=== PATIENT | female | born 1955 | race Caucasian/White ===

== ENCOUNTER 2017-03-05 21:22 | Inpatient (IN) ==
[2017-03-05 22:16] LABS: Basophils % 0.3 %; Eosinophils # 0.1 K/mcL (0.0-0.6); Eosinophils % 0.8 %; Hematocrit 41.8 % (35.3-44.9); Hemoglobin 13.5 g/dL (11.5-15.4); Immature Granulocytes % 0.2 % (0-4); Lymphocytes # 0.9 K/mcL (0.6-4.6); Lymphocytes % 15.3 %; Mean Corpuscular HGB Conc 32.3 g/dL (31.6-35.5); Mean Corpuscular Hemoglobin 30.4 pg (28.0-33.3); Mean Corpuscular Volume 94.1 fL (83.0-100.0); Mean Platelet Volume 9.3 fL (9.4-12.4); Monocytes # 0.6 K/mcL (0.0-1.3); Monocytes % 9.7 %; Neutrophils # 4.5 K/mcL (1.6-8.9); Platelet Count 152 K/mcL (140-400); Red Blood Count 4.44 M/mcL (3.82-4.97); Red Cell Distribution Width 13.8 % (11.5-14.5); Segmented Neutrophils % 73.7 %
[2017-03-05 22:29] LABS: BUN/Creatinine Ratio 18 (6-26); Blood Urea Nitrogen 15 mg/dL (7-20); Calcium 8.9 mg/dL (8.6-10.8); Carbon Dioxide 26 mEq/L (19-29); Chloride 106 mEq/L (98-109); Glucose 108 mg/dL (70-99); Osmolality,Calculated 293 (280-300); Potassium 4.2 mEq/L (3.5-4.5); Sodium 141 mEq/L (136-145); eGFR For African Americans > 60 (> 60); eGFR For Non-African Americans > 60 (> 60)
[2017-03-05] MEDS ORDERED: Furosemide 40 MG/4 ML VIAL IVP ONE (22:40)
--- NOTE | 2017-03-05 22:57 | Emergency Department Note ---
Disposition Clinical Impression: Congestive heart failure (CHF) Qualifiers: Congestive heart failure type: unspecified congestive heart failure type Congestive heart failure chronicity: acute Qualified Code(s): I50.9 - Heart failure, unspecified Disposition: Admitted As Inpatient Condition: Fair Time of Disposition: 23:22 SOB HPI - General Chief Complaint: ED Shortness of Breath/Dyspnea Stated Complaint: SOB Time Seen by Provider: 03/05/17 21:37 Source: patient, EMS Limitations: no limitations Nursing Notes Reviewed: Yes Vital Signs Reviewed: Yes - History of Present Illness Patient is a 61-year-old female who presents to [facility] ED with a chief complaint of difficulty breathing. States her symptoms worsened over the last several days. States she feels it in the substernal and epigastric region. States she has also had worsening lower extremity swelling as well as exertional dyspnea especially going up the stairs. Denies any prior history of heart problems. States at one point back in 2011, her primary care physician had referred her to a data processing systems project planner but then nothing really came out of it. Denies any nausea, vomiting, fever or chills. No recent cough or chest pain. No abdominal pain, no problems with urination or bowel movements. Pt Subjective Complaint: shortness of breath Onset (ago): day(s) Context: occurred during exertion Severity: moderate Consistency/Duration: gradually worsening Improves with: nothing Worsens with: exertion Associated symptoms: Denies: chest pain, fever, cough Treatment prior to arrival: none Cough present: No - Related Data Home oxygen amount: none Home Medications Medication Instructions Recorded Confirmed Preservision Areds 2 Softgel 03/05/17 Vitamin D3 03/05/17 03/05/17 Allergies Allergy/AdvReac Type Severity Reaction Status Date / Time No Known Allergies Allergy Verified 03/05/17 19:42 All systems ED: reviewed and negative except as stated. Past Medical History - Past Medical History Attestation: Yes The following information was validated with the patient. Source: patient Medical history: Reports: non-contributory Surgical history: Reports: non-contributory Psychiatric history: Reports: no psych history - Social History Smoking Status: Never smoker Smokeless Tobacco Status: No Alcohol use: Reports: none Drug use: Reports: none Physical Exam CONSTITUTIONAL: Well-appearing; well-nourished; A&O X 3, in no apparent distress HEAD: Normocephalic; atraumatic EYES: PERRL, no scleral icterus NOSE: The nose is normal in appearance without rhinorrhea NECK: No JVD or distended neck veins RESP: Normal chest excursion with respiration; breath sounds with crackles at the bases bilaterally; no wheezes, rhonchi, or rales CARD: Regular rhythm, without murmurs, rub or gallop ABD: Non-distended; non-tender, soft, without rigidity, rebound or guarding,no pulsatile mass CHEST: No pain with palpation SKIN: Normal for age and race; warm and dry without diaphoresis ; no apparent lesions EXTREMITIES: Pulses are 2 plus and equal times 4 extremities, 1+ peripheral edema, no calf muscle pain - General Limitations: no limitations General appearance: alert Course Course Narrative: Patient seen and examined. Worsening lower extremity swelling as well as exertional dyspnea. No prior history of congestive heart failure. Cardiopulmonary workup initiated. - Reevaluation(s) Reevaluation #1: Lab work shows elevated BNP in the 3000s. New-onset congestive heart failure. 40 mg IV Lasix ordered. Lab work otherwise unremarkable. I discussed with hospitalist Dr. Saunders who has accepted patient for admission. Time: 23:22 Vital Signs Temperature 97.4 F L 03/05/17 21:29 Pulse Rate 87 03/05/17 21:29 Respiratory Rate 20 03/05/17 21:29 Blood Pressure 94/65 03/05/17 21:29 O2 Sat by Pulse Oximetry 97 03/05/17 21:29 Temperature 97.4 F L 03/05/17 21:29 Pulse Rate 79 03/05/17 22:56 Respiratory Rate 18 03/05/17 23:41 Blood Pressure 119/71 03/05/17 23:41 O2 Sat by Pulse Oximetry 91 03/05/17 22:56 Oxygen Delivery Oxygen Delivery Nasal Cannula Shortness of Breath/Dyspnea - Medical Records Medical records reviewed: Yes I reviewed the patient's medical records. - Lab Data Lab results reviewed: Yes I reviewed the patient's lab results. Result diagrams: 03/05/17 22:07 03/05/17 22:07 Lab Results 03/05/17 03/05/17 03/05/17 Range/Units 22:07 22:07 22:07 WBC 6.1 (4.3-11.1) K/mcL RBC 4.44 (3.82-4.97) M/mcL Hgb 13.5 (11.5-15.4) g/dL Hct 41.8 (35.3-44.9) % MCV 94.1 (83.0-100.0) fL MCH 30.4 (28.0-33.3) pg MCHC 32.3 (31.6-35.5) g/dL RDW 13.8 (11.5-14.5) % Plt Count 152 (140-400) K/mcL MPV 9.3 L (9.4-12.4) fL Immature Gran % 0.2 (0-4) % Seg Neutrophils % 73.7 % Lymphocytes % 15.3 % Monocytes % 9.7 % Eosinophils % 0.8 % Basophils % 0.3 % Neutrophils # 4.5 (1.6-8.9) K/mcL Lymphocytes # 0.9 (0.6-4.6) K/mcL Monocytes # 0.6 (0.0-1.3) K/mcL Eosinophils # 0.1 (0.0-0.6) K/mcL Basophils # 0.0 (0.0-0.2) K/mcL Sodium 141 (136-145) mEq/L Potassium 4.2 (3.5-4.5) mEq/L Chloride 106 (98-109) mEq/L Carbon Dioxide 26 (19-29) mEq/L BUN 15 (7-20) mg/dL Creatinine 0.83 (0.57-1.11) mg/dL Est GFR ( Amer) > 60 (> 60) Est GFR (Non-Af Amer) > 60 (> 60) BUN/Creatinine Ratio 18 (6-26) Glucose 108 H (70-99) mg/dL Calculated Osmolality 293 (280-300) Calcium 8.9 (8.6-10.8) mg/dL Troponin I 0.02 (0-0.03) ng/mL B-Natriuretic Peptide (0-100) pg/mL 03/05/17 Range/Units 22:07 WBC (4.3-11.1) K/mcL RBC (3.82-4.97) M/mcL Hgb (11.5-15.4) g/dL Hct (35.3-44.9) % MCV (83.0-100.0) fL MCH (28.0-33.3) pg MCHC (31.6-35.5) g/dL RDW (11.5-14.5) % Plt Count (140-400) K/mcL MPV (9.4-12.4) fL Immature Gran % (0-4) % Seg Neutrophils % % Lymphocytes % % Monocytes % % Eosinophils % % Basophils % % Neutrophils # (1.6-8.9) K/mcL Lymphocytes # (0.6-4.6) K/mcL Monocytes # (0.0-1.3) K/mcL Eosinophils # (0.0-0.6) K/mcL Basophils # (0.0-0.2) K/mcL Sodium (136-145) mEq/L Potassium (3.5-4.5) mEq/L Chloride (98-109) mEq/L Carbon Dioxide (19-29) mEq/L BUN (7-20) mg/dL Creatinine (0.57-1.11) mg/dL Est GFR ( Amer) (> 60) Est GFR (Non-Af Amer) (> 60) BUN/Creatinine Ratio (6-26) Glucose (70-99) mg/dL Calculated Osmolality (280-300) Calcium (8.6-10.8) mg/dL Troponin I (0-0.03) ng/mL B-Natriuretic Peptide 3194 H (0-100) pg/mL - Radiology Data Radiology results reviewed: Yes I reviewed the patient's radiology results. Chest X-Ray 03/05/17 21:37 IMPRESSION: 1. Cardiomegaly with pulmonary edema. D/ / Kashmir Connelly MD / Kashmir Connelly MD Interpreting Provider: Kashmir Connelly MD - EKG Data EKG attestation: Yes I reviewed and interpreted this EKG. EKG results narrative: EKG done at 2212 shows sinus rhythm with a rate of [address] elevation. Mild depression noted in leads V4 and V5. Normal axis. Moderate intraventricular conduction delay. Occasional PVCs. EKG appears unchanged from prior one done 03/05/2017 at the urgent care. Critical Care Time Critical Care Time: Yes Total Critical Care Time: 40 Attestation: Critical care performed: Time is exclusive of separately billable procedures. Time includes: direct patient care, patient reassessment, coordination of patient care, interpretation of data (laboratory data, radiology data, and respiratory data), review of patient's medical records, medical consultation and documentation of patient care. Procedures included in critical care time: Procedures excluded from critical care time: Attestation Statement - Attestation Attestation: I, Bernabe Camargo MD, personally evaluated this patient and discussed their management with the resident physician. I reviewed the resident's note and agree with the documented findings, medical decision making, and plan of care. 61-year-old female presents to the emergency department with a complaint of increasing shortness of breath over the past week, worse today. She denies any orthopnea. No fever. There has been some cough with just occasiona clear white sputum. No chest pain. No palpitations. No dizziness or syncope. She also has noticed mild swelling of her feet and ankles. She denies any prior history of any heart disease or CHF. She does have a heart murmur which she has had since childhood. 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 Alert and oriented 3. There is no cyanosis or diaphoresis. Breath sounds are equal bilaterally with a few bibasilar rales. Heart regular rate and rhythm with frequent ectopy. There is a grade 3/6 systolic murmur. Abdomen is soft and nontender with normal bowel sounds. There is 1+ pitting edema of the lower extremities bilaterally. Labs reviewed. BNP 3194. Chest x-ray shows cardiomegaly with pulmonary edema. EKG shows sinus rhythm with PVCs, no acute ischemic changes. Patient received Lasix IV and was placed on a nitroglycerin drip. The hospitalist, Dr. Saunders, was consulted and accepted admission of the patient.
[2017-03-05] MEDS ORDERED: Nitroglycerin 25 MG/250 ML INFUS..BTL IVC SCH (23:00)
--- NOTE | 2017-03-06 02:13 | Internal Med History&Physical ---
Date of Encounter: 03/06/17 Time of Encounter: 02:09 Assessment and Plan (1) Congestive heart failure (CHF) Current visit: Yes Status: Acute Patient has congestive heart failure. She has a systolic murmur likely mitral regurgitation. Will check echocardiogram to assess its severity and check LV function. She denies any chest pain. Will check serial troponin. Will start the patient on IV Lasix aspirin and low dose jaime inhibitor. will hold off beta blockers for now. Follow intake and output. Cardiology consultation. Telemetry monitoring. Qualifiers: Congestive heart failure type: unspecified congestive heart failure type Congestive heart failure chronicity: acute Qualified Code(s): I50.9 - Heart failure, unspecified Internal Medicine - H&P: HPI Chief complaint: sob History of present illness: Ms. Lopez is a 61 year old female with congenital anomalies of the upper extremities but no otherwise significant past medical history presents to the emergency room today with the main component of shortness of breath. For the past week patient has been having progressive shortness of breath to the point where she short of breath with minimal exertion she has noticed bilateral lower extremity swelling and weight gain. She has been having nonproductive cough no fever and chills. She denies any chest pain. She denies any prior similar problems. She mentioned that she was told since she was young that she has a cardiac murmur but never forgot one. She denies any otherwise medical problems. Past Med Surg Social Fam HX - Past Medical History Medical history: non-contributory Psychiatric history: no psych history - Past Surgical History Surgical History: non-contributory - Social History Smoking Status: Never smoker Smokeless Tobacco Status: No Alcohol use: none Drug use: none - Family History Father Hx Family Cardiac Disorders: Yes Hx Family Cancer: Yes Internal Medicine - H&P: Meds Preservision Areds 2 Softgel 03/05/17 [History] Vitamin D3 03/05/17 [History] 3 Allergy/AdvReac Type Severity Reaction Status Date / Time No Known Allergies Allergy Verified 03/05/17 19:42 All Systems PM: A 10-system review of systems was performed and is negative for pertinent findings except as documented above in the HPI. Review of systems: 10 point review of systems is negative except for HPI - Constitutional Vitals: Temp Pulse Resp BP Pulse Ox 97.9 F 65 16 119/71 94 03/06/17 00:41 11/11/17 00:41 03/06/17 00:41 03/06/17 00:41 03/06/17 00:41 Exam: General: Patient is A&O X3 Cardiac: pansystolic murmur over precordium, maximal intensity over apex Chest: Clear to auscultation bilaterally Abdomen: soft, nontender, non distended, normal BS. Neuro: No focal deficits LE" 1+ swelling Internal Med - H&P Results - Labs CBC & Chem 7: 03/05/17 22:07 03/05/17 22:07
[2017-03-06 04:34] LABS: BUN/Creatinine Ratio 19 (6-26); Blood Urea Nitrogen 15 mg/dL (7-20); Calcium 9.1 mg/dL (8.6-10.8); Carbon Dioxide 28 mEq/L (19-29); Chloride 102 mEq/L (98-109); Creatine Kinase 78 Units/L (29-168); Glucose 89 mg/dL (70-99); Magnesium 1.7 mg/dL (1.6-2.6); Osmolality,Calculated 298 (280-300); Sodium 144 mEq/L (136-145); eGFR For African Americans > 60 (> 60); eGFR For Non-African Americans > 60 (> 60)
[2017-03-06 04:49] LABS: Thyroid Stimulating Hormone 1.366 mcIU/mL (0.350-4.840)
[2017-03-06] MEDS: *HR* Heparin 5,000 UNIT/ML VIAL SQ SCH ×2 (05:05→17:01)
[2017-03-06] MEDS: Famotidine 20 MG TABLET PO SCH (09:49)
[2017-03-06] MEDS: Aspirin 81 MG TAB.CHEW PO SCH (09:53)
[2017-03-06] MEDS: Furosemide 20 MG/2 ML VIAL IVP SCH (09:53)
--- NOTE | 2017-03-06 10:11 | Internal Med Progress Note ---
Date of Encounter: 03/06/17 Time of Encounter: 08:35 - Assessment and plan (1) Congestive heart failure (CHF) Current Visit: Yes Status: Acute Assessment and plan: Pt presents to the ED with c/o approximately 1 week history of SOB, PAUL, these were new symptoms for her. She reports increased BLE, L>R. She reports feeling chest congestion, but denies fever, chills, or rigors. She denies chest pain or pressure, n/v, diaphoresis. Pt has a 3/6 murmur LSB and irregular apical pulse. BNP is elevated 3194 and pt has one elevated troponin, 0.4. Chest xray shows cardiomegaly with pulmonary edema. Pt has no prior cardiac history, cardiology has been consulted Echo is completed, report is not ready at this time. Continue telemetry Continue Lasix, ASA, and pt was started on low dose ACEI by muffler hand. Qualifiers: Congestive heart failure type: unspecified congestive heart failure type Congestive heart failure chronicity: acute Qualified Code(s): I50.9 - Heart failure, unspecified (2) Dyspnea on exertion Current Visit: Yes Status: Acute Assessment and plan: New onset, new symptom for pt. Pt is wearing supplemental 02, sats > 92%. Pt appears to be in no distress, faint rales heard in dilshad bases. Chest xray shows cardiomegaly and pulmonary edema. Plan as above. (3) Chest pain Current Visit: No Status: Inactive Assessment and plan: Pt denies ever having chest pain or pressure. Qualifiers: Chest pain type: unspecified Qualified Code(s): R07.9 - Chest pain, unspecified (4) DVT prophylaxis Current Visit: Yes Status: Acute Assessment and plan: Heparin SQ daily, encourage ambulation. 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 Patient is very independent and very determined. She also has a fair amount of anxiety about her condition , as well as a lot of stress. She currently cares for her father who has leukemia, and is in alf and is completely noncompliant. 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 Patient had multiple questions about medications and condition, all were answered. She denies chest pain ever. She denies any weight gain, she states that this was incorrectly documented in the emergency department. She reports having a headache that she describes as occipital pressure that was relieved with Tylenol over the last few weeks intermittently. Her symptoms that she noticed which brought her to the hospital with dyspnea on exertion, most commonly while going up and down the stairs. She says she normally goes up and down the stairs at her home 10 to 12 times a day without a problem. - Constitutional Vitals: Temp Pulse Resp BP Pulse Ox 97.6 F 77 16 124/73 96 03/06/17 07:19 03/06/17 07:19 03/06/17 07:19 03/06/17 07:19 03/06/17 07:19 General appearance: Present: cooperative, A&O X 3, pleasant, no acute distress, answers questions appropriately - Head Head exam: Present: atraumatic, normal inspection, normocephalic - Eye Eye exam: Present: normal appearance, conjuntiva pink, sclera anicteric - Neck Neck exam general surgery: Present: normal inspection, supple, trachea midline. Absent: lymphadenopathy, tenderness - Respiratory Respiratory exam: Present: CTAB, rales. Absent: accessory muscle use, chest wall tenderness, decreased breath sounds, respiratory distress, rhonchi, wheezes Additional comments: Faint crackles heard in bilateral bases. - Cardiovascular Cardiovascular exam: Present: RRR, +S1, +S2. Absent: bradycardia, gallop, rubs Additional comments: 3/6 murmur heard at left sternal border. - GI/Abdominal GI/Abdominal exam: Present: normal bowel sounds, soft. Absent: distended, hepatomegaly, tenderness - Extremities Exam Extremities exam: Present: pedal edema, warm, radial pulses palpable and symmetrical. Absent: calf tenderness, cyanotic, mottling, tenderness - Neurological Exam Neurological exam: Present: alert, oriented X3, no focal deficits. Absent: facial droop, speech deficit - Skin Skin exam: Present: dry, intact, normal color, warm. Absent: rash Internal Medicine: Result - Labs CBC & Chem 7: 03/05/17 22:07 03/06/17 03:34 Labs: BMP 03/06/17 03:34 Sodium 144 Potassium 4.0 Chloride 102 Carbon Dioxide 28 BUN 15 Creatinine 0.80 Glucose 89 Calcium 9.1 Cardiac Enzymes 03/06/17 Range/Units 03:34 Troponin I 0.04 H* (0-0.03) ng/mL Consult Discharge Plan - Plan Referrals: NONE,PCP [Primary Care Provider] - Cele Pan MD [Family Provider] -
[2017-03-06] MEDS ORDERED: MOM Conc 10 ML UD.LIQ PO PRN (10:14)
[2017-03-07] MEDS: *HR* Heparin 5,000 UNIT/ML VIAL SQ SCH (04:52)
[2017-03-07] MEDS: Aspirin 81 MG TAB.CHEW PO SCH (07:59)
[2017-03-07] MEDS: Furosemide 20 MG/2 ML VIAL IVP SCH (07:59)
[2017-03-07] MEDS: Famotidine 20 MG TABLET PO SCH (08:01)
--- NOTE | 2017-03-07 09:35 | Cardiology Consult Note ---
Date of Encounter: 03/07/17 Time of Encounter: 10:25 Assessment and Plan (1) Mitral regurgitation Current Visit: Yes Status: Acute Modertate to severe mitral regurgitation, appears more to have worsened since echo 2011, with increased LV dilatation, and decreased LV systolic function contribituing to acute on chronic systolic heart failure. Long conversation with pt and family, recommend rt and left heart cath to eval LV function, measure pulmonary presures, determine if pt is candidate for MVR, possible mitral clip. risks and benefits discussed, pt agrees to proceed. Qualifiers: Cardiac valve disease etiology: nonrheumatic Qualified Code(s): I34.0 - Nonrheumatic mitral (valve) insufficiency (2) Congestive heart failure (CHF) Current Visit: Yes Status: Acute Acute on chronic systolic heart failure, due to LV systolic impairment and severe MR. responding to gentle diuresis, continue IV lasix today, hold in AM in anticipation of LHC/RHC. Qualifiers: Congestive heart failure type: combined Congestive heart failure chronicity : acute Qualified Code(s): I50.41 - Acute combined systolic (congestive) and diastolic (congestive) heart failure (3) Pulmonary hypertension Current Visit: Yes Status: Chronic Severe pulmonary hypertension, will eval with Rt and left heart cath 03/08, obtain nocturnal pulse ox tonight to eval nocturnal hypoxia. (4) Tricuspid regurgitation Current Visit: Yes Status: Chronic Appears more severe than on last echo 2012 Qualifiers: Cardiac valve disease etiology: nonrheumatic Qualified Code(s): I36.1 - Nonrheumatic tricuspid (valve) insufficiency Discussion w patient/family: The assessment and plan as outlined above was discussed with the patient and/or family members who expressed understanding and agreement. All questions were answered. Thank you for involving us in the care of your patient. Please call with any questions. History of Present Illness Consult date: 03/06/17 Requesting physician: Angelika Nixon Consult reason: CHF Chief complaint: Shortness of breath History of present illness: Ms. Lopez is a 61 year old female who presented to ER with complaint of shortness of breath. Pt reports increasing shortness of breath over the last week. She notes more difficulty with normal activities, is no longer able to climb stairs or perform mild housekeeping without having to stop to catch her breath. She was able to lie flat to sleep two weeks ago,was requiring two pillows to sleep the evening before admission. She also notes new conversational dyspnea. She also notes increasing lower extremity swelling, left greater than right, starting about a week ago, which had previously resolved overnight, now is present most of the time. Bilat swelling worsens throughout the day. She denies associated chest pain, palpitations, nausea, or diaphoresis. She reports has had a heart murmur since childhood, underwent echo and stress approx 2009, which was reportedly normal, told she does not need to return for further cardiac evaluation at that time. 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, hands internalliy rotated.) Psychiatric history: no psych history, anxiety - Past Surgical History Surgical History: non-contributory - Social History Smoking Status: Never smoker Smokeless Tobacco Status: No Alcohol use: none Drug use: none - Family History Father Hx Family Cardiac Disorders: Yes Hx Family Cancer: Yes Medications and Allergies Cholecalciferol (Vitamin D3) [Vitamin D] 2,000 unit PO DAILY 03/05/17 [History] Vit C/E/Zn/Coppr/Lutein/Zeaxan [Preservision Areds 2 Softgel] 1 cap PO DAILY 02/09 [History] 3 Allergy/AdvReac Type Severity Reaction Status Date / Time No Known Allergies Allergy Verified 03/05/17 19:42 All Systems Review: A 10-system review of systems was performed and is negative for pertinent findings except as documented above in the HPI. 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 ) - Psychiatric Psychiatric: anxiety Physical Examination Vital Signs, Last 4 Hours Temp Pulse Resp BP Pulse Ox 03/07/17 08:00 69 03/07/17 07:44 97.8 F 48 16 111/66 93 General: Conversant, No Apparent Distress HEENT: Atraumatic, Normocephaly, Mucus Membranes Moist Neck: No JVD, Normal carotid pulses Cardiac: Reg Rate and Rhythm, Normal S1 and S2, Other (2/6 EDENILSON, left ant anxillary line, radiates into left scapula, increases with stain phase of Batsheva Billy. ) Lungs: No Wheeze, Rales, Rhonchi Neuro: Alert and responsive, No focal deficits noted Abdomen: Soft, Non-Tender, Other (BS x 4, no bruits. ) Skin: No rashes noted on visualized skin Musculoskeletal: No Chest Wall Tenderness Extremities: No Clubbing, Other (Rt lower ext 1+ pretibial edema, left 2+ pretibial edema. Bilateral congential shortended forarms with hands internalliy rotated. ) Results 03/05/17 22:07 03/06/17 03:34 Lab Results 03/06/17 10:42 Troponin I 0.03 - Imaging and Cardiology Echo: report reviewed (Severe MR, global LV systolic impairment with EF 35%, mod TR), image reviewed - EKG Interpretation EKG results cardiology: personally reviewed Consult Discharge Plan - Plan Referrals: Cele Pan MD [Family Provider] - NONE,PCP [Primary Care Provider] -
--- NOTE | 2017-03-07 14:26 | Internal Med Progress Note ---
Date of Encounter: 03/07/17 Time of Encounter: 13:10 - Assessment and plan (1) Congestive heart failure (CHF) Current Visit: Yes Status: Acute Assessment and plan: Pt presents to the ED with c/o approximately 1 week history of SOB, PAUL, these were new symptoms for her. She reports increased BLE, L>R. She reports feeling chest congestion, but denies fever, chills, or rigors. She denies chest pain or pressure, n/v, diaphoresis. Pt has a 3/6 murmur LSB and irregular apical pulse. BNP is elevated 3194 and pt has one elevated troponin, 0.4. Chest xray shows cardiomegaly with pulmonary edema. Pt has no prior cardiac history, cardiology has been consulted Echo showed an LVEF of 35% with global hypokinesis and a severely dilated left ventricle. There is mild concentric LV hypertrophy, severe LV systolic dysfunction, severely dilated left atrium, trileaflet aortic valve, trace AR, moderate to severe MR, mildly calcified mitral valve leaflets, moderate TR, mild to moderate CT, severe pulmonary hypertension. Continue telemetry Continue Lasix, ASA, and pt was started on low dose ACEI by wardrobe coordinator. Patient will have our HC/LHC tomorrow. Chest X-Ray 03/05/17 21:37 IMPRESSION: 1. Cardiomegaly with pulmonary edema. D/ / Kashmir Connelly MD / Kashmir Connelly MD Interpreting Provider: Kashmir Connelly MD Echocardiogram 03/06/17 02:01 Impressions: Technically adequate exam. Normal sinus rhythm. Severely dilated left ventricle. Mild concentric left ventricular hypertrophy. Severe left ventricular systolic dysfunction. Severely dilated left atrium. Trileaflet aortic valve. Trace aortic regurgitation. Moderate-severe mitral regurgitation. Mildly calcified mitral valve leaflets. Mild tricuspid regurgitation. Mild pulmonic regurgitation. LVEF 35%, global hypokinesis Left Ventricular Wall Motion: Rest Echo Findings The apex, apical inferior, mid inferior, basal inferior, apical anterior, mid anterior, basal anterior, apical septal, mid inferior septal, basal inferior septal, apical lateral, mid anterior lateral, basal anterior lateral, mid anterior septal and mid inferior lateral stevenson were hypokinetic. Findings: Study Quality * Technically adequate exam. ECG Findings * Normal sinus rhythm. * Sinus rhythm with PVCs. Left Ventricle * LVEF 35%. * Severely dilated left ventricle. * Mild concentric left ventricular hypertrophy. * Severe left ventricular systolic dysfunction. * Mild left ventricular diastolic dysfunction. * There is no LV thrombus. Right Ventricle * Mildly dilated right ventricle. * Mild right ventricular hypokinesis. Left Atrium * Severely dilated left atrium. Right Atrium * Mildly dilated right atrium. Aortic Valve * Trileaflet aortic valve. * Mildly sclerotic aortic valve leaflets. * Trace aortic regurgitation. Mitral Valve * Moderate-severe mitral regurgitation. * Mildly calcified mitral valve leaflets. * Leaflets are restricted. Tricuspid Valve * Mild tricuspid regurgitation. Pulmonic Valve * Mild pulmonic regurgitation. Aorta * Normally sized aortic root. Pericardium * The pericardium appears normal. ADDENDUM: 03/07/17 1158 Impressions: Normal sinus rhythm. Technically adequate exam. LVEF 35%, global hypokinesis Severely dilated left ventricle. Mild concentric left ventricular hypertrophy. Severe left ventricular systolic dysfunction. Severely dilated left atrium. Trileaflet aortic valve. Trace aortic regurgitation. Moderate-severe mitral regurgitation. Mildly calcified mitral valve leaflets. Moderate tricuspid regurgitation. Mild-moderate pulmonic regurgitation. Severe pulmonary hypertension. Estimated RVSP is 88 mmHg. Left Ventricular Wall Motion: Rest Echo Findings The apex, apical inferior, mid inferior, basal inferior, apical anterior, mid anterior, basal anterior, apical septal, mid inferior septal, basal inferior septal, apical lateral, mid anterior lateral, basal anterior lateral, mid anterior septal and mid inferior lateral stevenson were hypokinetic. Findings: Study Quality * Technically adequate exam. ECG Findings * Normal sinus rhythm. * Sinus rhythm with PVCs. Left Ventricle * LVEF 35%. * Severely dilated left ventricle. * Mild concentric left ventricular hypertrophy. * Severe left ventricular systolic dysfunction. * Mild left ventricular diastolic dysfunction. * There is no LV thrombus. Right Ventricle * Mildly dilated right ventricle. * Mild right ventricular hypokinesis. Left Atrium * Severely dilated left atrium. Right Atrium * Mildly dilated right atrium. Aortic Valve * Trileaflet aortic valve. * Mildly sclerotic aortic valve leaflets. * Trace aortic regurgitation. Mitral Valve * Moderate-severe mitral regurgitation. * Mildly calcified mitral valve leaflets. * Leaflets are restricted. Tricuspid Valve * Moderate tricuspid regurgitation. * Severe pulmonary hypertension. * Estimated RVSP is 88 mmHg. Pulmonic Valve * Mild-moderate pulmonic regurgitation. Aorta * Normally sized aortic root. Pericardium * The pericardium appears normal. Qualifiers: Congestive heart failure type: combined Congestive heart failure chronicity : acute Qualified Code(s): I50.41 - Acute combined systolic (congestive) and diastolic (congestive) heart failure (2) Dyspnea on exertion Current Visit: Yes Status: Acute Assessment and plan: New onset, new symptom for pt. Pt is wearing supplemental 02, sats > 92%. Pt appears to be in no distress, faint rales heard in dilshad bases on admission, lungs are clear now. Chest xray shows cardiomegaly and pulmonary edema. Plan as above. (3) Chest pain Current Visit: No Status: Inactive Assessment and plan: Pt denies ever having chest pain or pressure. Qualifiers: Chest pain type: unspecified Qualified Code(s): R07.9 - Chest pain, unspecified (4) DVT prophylaxis Current Visit: Yes Status: Acute Assessment and plan: Heparin SQ daily, encourage ambulation. (5) Mitral regurgitation Current Visit: Yes Status: Acute Assessment and plan: Per echo. Plan as above. Qualifiers: Cardiac valve disease etiology: nonrheumatic Qualified Code(s): I34.0 - Nonrheumatic mitral (valve) insufficiency (6) Pulmonary hypertension Current Visit: Yes Status: Chronic Assessment and plan: RHC/C tomorrow for evaluation. (7) Tricuspid regurgitation Current Visit: Yes Status: Chronic Assessment and plan: Per echo. C/RHC tomorrow for evaluation. Qualifiers: Cardiac valve disease etiology: nonrheumatic Qualified Code(s): I36.1 - Nonrheumatic tricuspid (valve) insufficiency - Time Spent With Patient less than 15 minutes - Subjective Interval history: Patient is an exceptionally pleasant, alert, oriented 61-year-old female with congenital bilateral upper extremity deformities. Pt was seen and assessd at 1310 today. All questions from pt and [id number] answered. She states that she is tired of sitting in here and is ready to go home. She denies n/v/d, abdominal pain, dizziness. Pt denies chest pain or SOB. - Constitutional Vitals: Temp Pulse Resp BP Pulse Ox 97.7 F 71 16 101/63 92 03/07/17 12:42 03/07/17 12:42 03/07/17 12:42 03/07/17 12:42 03/07/17 12:42 General appearance: Present: cooperative, A&O X 3, pleasant, no acute distress, answers questions appropriately - Head Head exam: Present: atraumatic, normal inspection, normocephalic - Eye Eye exam: Present: normal appearance, conjuntiva pink, sclera anicteric - Neck Neck exam general surgery: Present: normal inspection, supple, trachea midline. Absent: lymphadenopathy, tenderness - Respiratory Respiratory exam: Present: CTAB. Absent: accessory muscle use, chest wall tenderness, decreased breath sounds, rales, respiratory distress, rhonchi, wheezes - Cardiovascular Cardiovascular exam: Present: RRR, +S1, +S2. Absent: diastolic murmur, gallop, rubs, systolic murmur - GI/Abdominal GI/Abdominal exam: Present: normal bowel sounds, soft, no peritoneal signs. Absent: distended, hepatomegaly, tenderness - Extremities Exam Extremities exam: Present: normal capillary refill, normal inspection, warm. Absent: calf tenderness, cyanotic, pedal edema, tenderness - Neurological Exam Neurological exam: Present: alert, oriented X3, no focal deficits. Absent: facial droop, speech deficit - Skin Skin exam: Present: dry, intact, normal color, warm. Absent: rash Internal Medicine: Result - Labs CBC & Chem 7: 03/05/17 22:07 03/06/17 03:34 Consult Discharge Plan - Plan Referrals: Cele Pan MD [Family Provider] - NONE,PCP [Primary Care Provider] -
--- NOTE | 2017-03-07 17:45 | Electrocardiograph Report ---
[address] [place] [address] Test Date: 2017-03-05 Pat Name: Aniya Lopez Department: [id number] Room: 3B Gender: F Spanish Interpreter/Translator: : 1955 Requested By: Lilly Power Order Number: [id number] Reading MD: Russell Hopson MD Measurements Intervals [place] Rate: 82 P: 62 MD: 177 QRS: -16 QRSD: 110 T: 71 QT: 370 QTc: 408 Interpretive Statements SINUS RHYTHM WITH FREQUENT VENTRICULAR PREMATURE COMPLEXES IN TRIGEMINAL PATTERN INCOMPLETE RIGHT BUNDLE BRANCH BLOCK Electronically Signed On 03-07-2017 17:44:29 EST by Russell Hopson MD
--- NOTE | 2017-03-07 17:55 | Electrocardiograph Report ---
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
[2017-03-08] MEDS: *HR* Heparin 5,000 UNIT/ML VIAL SQ SCH ×2 (05:53→16:20)
[2017-03-08] MEDS: Aspirin 81 MG TAB.CHEW PO SCH (07:50)
[2017-03-08] MEDS: Famotidine 20 MG TABLET PO SCH (07:50)
[2017-03-08 08:40] LABS: Basophils % 0.6 %; Eosinophils # 0.1 K/mcL (0.0-0.6); Eosinophils % 2.2 %; Hematocrit 43.7 % (35.3-44.9); Hemoglobin 14.5 g/dL (11.5-15.4); Immature Granulocytes % 0.2 % (0-4); Lymphocytes % 20.9 %; Mean Corpuscular HGB Conc 33.2 g/dL (31.6-35.5); Mean Corpuscular Hemoglobin 30.8 pg (28.0-33.3); Mean Corpuscular Volume 92.8 fL (83.0-100.0); Mean Platelet Volume 9.1 fL (9.4-12.4); Monocytes # 0.6 K/mcL (0.0-1.3); Monocytes % 12.2 %; Neutrophils # 3.2 K/mcL (1.6-8.9); Platelet Count 166 K/mcL (140-400); Red Blood Count 4.71 M/mcL (3.82-4.97); Red Cell Distribution Width 13.8 % (11.5-14.5); Segmented Neutrophils % 63.9 %
[2017-03-08 08:44] LABS: INR 1.2; Prothrombin Time 13.2 Seconds (9.4-12.1)
[2017-03-08 08:51] LABS: BUN/Creatinine Ratio 23 (6-26); Blood Urea Nitrogen 18 mg/dL (7-20); Calcium 8.9 mg/dL (8.6-10.8); Carbon Dioxide 29 mEq/L (19-29); Chloride 105 mEq/L (98-109); Glucose 97 mg/dL (70-99); Osmolality,Calculated 296 (280-300); Potassium 3.8 mEq/L (3.5-4.5); Sodium 142 mEq/L (136-145); eGFR For African Americans > 60 (> 60); eGFR For Non-African Americans > 60 (> 60)
[2017-03-08 09:48] LABS: Alanine Aminotransferase 32 Units/L (0-55); Aspartate Amino Transferase 19 Units/L (5-34); Cholesterol 151 mg/dL (< 200); HDL Cholesterol 38 mg/dL (40-59); LDL Cholesterol,Calculated 91 mg/dL (0-99); Triglycerides 108 mg/dL (< 150)
--- NOTE | 2017-03-08 12:20 | Event Note ---
Date of Encounter: 03/08/17 Time of Encounter: 08:30 - Cardiology Event Note Patient admitted with CHF. Plan for LHC today for severe MR. Discussed risks versus benefits of LHC with patient and family. Patient states understanding and agreeable to proceed. Telemetry reviewed with short runs of non-sustained ventricular tachycardia, longest lasting 11 beats. One run of atrial tachycardia noted also. Will add low dose beta john. Of note, patient had troponins of 0.02, 0.04, 0.03 in the setting of CHF. Denies chest pain. Do not suspect NSTEMI, suspect demand ischemia related to CHF. No cardiac rehab warranted. Further recommendations pending LHC.
[2017-03-08] MEDS ORDERED: Heparin 1,000 UNITS/500 mL NS 500 ML ONE (12:44)
[2017-03-08] MEDS ORDERED: Nitroglycerin 1,000 MCG/10 ML VIAL IV ONE (12:44)
[2017-03-08] MEDS ORDERED: *HR* Heparin 10,000 UNIT/10 ML VIAL ONE (12:44)
[2017-03-08] MEDS ORDERED: 0.9 % Sodium Chloride 1,000 ML ONE ×2 (12:44→13:24)
[2017-03-08] MEDS ORDERED: *HR* FentaNYL (PF) 100 MCG/2 ML VIAL ONE (13:32)
[2017-03-08] MEDS ORDERED: *HR* Midazolam HCl 2 MG/2 ML VIAL ONE (13:32)
[2017-03-08] MEDS ORDERED: Acetaminophen 325 MG TABLET PO PRN (14:20)
--- NOTE | 2017-03-08 14:20 | Pre-Sedation Evaluation ---
Pre-sedation evaluation - Pre-sedation checklist Date of procedure: 03/08/17 Procedure: LHC Recent Vitals: Last Vital Signs Temp 97.7 F 03/08/17 11:04 Pulse 92 03/08/17 11:04 Resp 15 03/08/17 11:04 BP 124/67 03/08/17 11:04 Pulse Ox 90 03/08/17 11:04 H&P (including ROS) documented in medical record: Yes Previous reaction to sedatives/anesthetics: No Dietary Status: NPO after Midnight ASA Classification *see protocol: CLASS II-Mild systemic disease Plan of Care: Pt appropriate candidate for procedure/moderate/conscious sedation
--- NOTE | 2017-03-08 14:21 | Invasive Diagnostic Lab Proc ---
Name: Aniya Lopez Date of Study: 03/08/2017 Date: 1955 Ht: 57.1in Medical Record#: [id number] Age: 61 Wt: 147.27lb Gender: Female BSA: 1.58 Order #: [id number] BMI: 31.77 Physicians Procedure Physician: Margot Nieves MD Referring MD: Referring MD: Staff Name Position Time In [facility], [facility] RT (R) Scrub 01:14 PM Lizzette Payan RN Professional Engineer 01:14 PM Ila Genao RN Professional Engineer 01:14 PM Indications Indication Unstable Angina Procedures Performed Procedure CORONARY ARTERY ANGIO S&I Pre-Procedure Checklist Informed consent is complete signed and on chart. H&P is on chart. ID band is on and ID verified with patient. Patient NPO for procedure The procedure was described for the patient and questions were answered. Blood Pressure: 111/73 ECG is on chart. Rhythm: NSR Plan of Care Patient will tolerate the procedure without complications. Adequate level of comfort will be maintained. Hemodynamics will remain stable Patient will recover from procedure without complications. Respiratory function will be maintained. Cardiac rhythm will remain stable. Patient temperature will be maintained. Patient and/or family have verbalized understanding of the procedure. Patient Education Chief Complaint/Reason for Test: Cardiac Cath Developmental Category: Adult (18-64 years) Developmentally Appropriate for Age: Yes Learning Barriers: None Education Needs: Procedure Education Method: Verbal Information Taught: Cardiac Cath Educational Evaluation: Able to repeat information Intravenous Access Time IV Size Location DC'd Fluid/Drip Rate Units RN 01:04 PM Allergies No Known Allergies Vital Signs Time BP (mmHg) HR (bpm) O2 Sat. RR (bpm) LOC 01:27 PM / % 5 = Fully awake and oriented or at pre-proc level 01:27 PM / % 5 = Fully awake and oriented or at pre-proc level 01:42 PM / % 5 = Fully awake and oriented or at pre-proc level 01:35 PM 126 / 86 89 98 % 12 01:41 PM 129 / 61 74 95 % 21 01:45 PM 114 / 51 77 96 % 19 01:51 PM 99 / 52 90 95 % 15 01:56 PM 98 / 76 79 93 % 36 02:00 PM 108 / 82 82 96 % 13 01:30 PM 142 / 72 84 95 % 20 Procedural Medications Time Medication Dose Units Method Given By 01:27 PM Oxygen 2 L/min nasal cannula Lizzette Payan RN 01:34 PM Versed 0.5 mg Intravenous Lizzette Payan RN 01:34 PM Fentanyl 25 mcg Intravenous Lizzette Payan RN 01:42 PM Lidocaine 2% 10 ml Subcutaneous Margot Nieves MD 01:43 PM Versed 0.5 mg Intravenous Lizzette Payan RN 01:43 PM Fentanyl 25 mcg Intravenous Lizzette Payan RN ASA Classification: CLASS II- Mild systemic disease (i.e. well-controlled diabetes, hypertension, asthma, cigarette smoking) [place]a Score Preprocedure Postprocedure Activity 2- Moves 4 extremities sustained head lift Activity 2- Moves 4 extremities sustained head lift Circulation 2- SBP +/= 20 points of pre-anesthetic level Circulation 2- SBP +/= 20 points of pre-anesthetic level Consciousness 2- Awake and alert oriented x 3 Consciousness 2- Awake and alert oriented x 3 O2 Saturation 2- Able to maintain O2 satruation of 92% on room air O2 Saturation 2- Able to maintain O2 satruation of 92% on room air Respiratory 2- Able to deep breathe and cough well Respiratory 2- Able to deep breathe and cough well Total Score 10 Total Score 10 Contrast Agent: Isovue Diagnostic Contrast: 20 ml Total Contrast: 20 ml Fluoro Dose: 116 mGy Procedure Log Time Note Enter By 01:05 PM Case Start 01:05 PM CathStat 01:08 PM Pt arrived to parking lot laborer 2 at 13:08 [email or web address] 01:14 PM Physican paged/called 13:14. [email or web address] 01:14 PM Rose Mary Morales RT (R) Position: Scrub Time in: 13:14 [email or web address] 01:14 PM Lizzette Payan RN Position: Professional Engineer Time in: 13:14 [email or web address] 01:14 PM Ila Genao RN Position: Professional Engineer Time in: 13:14 [email or web address] 01:14 PM Case Delayed No [email or web address] 01:25 PM Hair removed from procedure site in procedure lab using clippers. Right groin prepped with Chloraprep by Rose Mary Morales RT (R), safety strap applied then patient was draped. Skin intact. [email or web address] 01:25 PM Physican paged/called 13:25. [email or web address] 01:26 PM Physican responded and notified patient is ready 13:25 [email or web address] 01: PM Physician arrived 13: [email or web address] : PM Meet and greet completed [email or web address] 01: PM Sign in performed according to hospital policy. [email or web address] 01: PM Procedure start 13: [email or web address] : PM Time: 13: Oxygen on at 2 L/min per nasal cannula by Lizzette Payan RN : PM Time: 13: Patient comfortable and pain free: Yes [email or web address] : PM Time: 13:LOC: 5 = Fully awake and oriented or at pre-proc level [email or web address] : PM Clinical Presentation: Unstable angina mm 01:30 PM Vitals capture started with the following parameters, Patient=Adult, Interval=5 min, Initial Wpotligu=567 mmHg, Deflation Rate=5 mmHg, Cuff placed on Right Arm 01:30 PM HR=84 bpm, WOBU=746/72 mmhg, SpO2=95.0 %, Resp=20 B/min, Comment=SR w/ PVCs 01:31 PM Recorded ECG: HR=88 Condition=Condition 1 01:34 PM Time: 13:34 Versed 0.5 mg Intravenous Given by Lizzette Payan RN anamaria :34 PM Time: 13:34 Fentanyl 25 mcg Intravenous Given by Lizzette Payan RN 01:35 PM HR=89 bpm, BDML=705/86 mmhg, SpO2=98.0 %, Resp=12 B/min, Comment=SR w/ PVCs 01:39 PM Pressure channel 1 zeroed. 01:40 PM Time out performed according to hospital policy [email or web address] 01:41 PM HR=74 bpm, CTGG=472/61 mmhg, SpO2=95.0 %, Resp=21 B/min, Comment=SR w/ PVCs : PM Time: 13:27LOC: 5 = Fully awake and oriented or at pre-proc level [email or web address] :42 PM Time: 13:27 Patient comfortable and pain free: Yes [email or web address] :42 PM Time: 13:42 10 ml Lidocaine 2% to right groin Subcutaneous Given by MD isidro Diegommers 01:42 PM Micro-Introducer Kit utilized for sheath placement 01:43 PM Time: 13:43 Versed 0.5 mg Intravenous Given by Lizzette Payan RN 01:43 PM Time: 13:43 Fentanyl 25 mcg Intravenous Given by Lizzette Payan RN [email or web address] 01:45 PM Access obtained by percutaneous puncture. 6Fr 10cm Terumo [place] sheath placed in right Femoral artery. [id number] mm 01:45 PM HR=77 bpm, ZVUB=646/51 mmhg, SpO2=96.0 %, Resp=19 B/min, Comment=SR w/ PVCs 01:46 PM 0.035 145cm Navilyst 3mmJ wire [id number] mm 01:46 PM 5Fr FR 4 catheter inserted over the wire [facility] mm 01:46 PM Recorded Pressure: Ao, HR=79, Condition=Condition 1 (Aorta) Ao 111/64/85 01:48 PM RCA angiography performed in multiple views. mm 01:48 PM Catheter removed 01:48 PM 5Fr FL 4 catheter inserted over the wire [facility] mm 01:48 PM LCA angiography performed in multiple views. oumm 01:49 PM Recorded Pressure: Ao, HR=78, Condition=Condition 1 (Aorta) Ao 116/61/83 01:50 PM Catheter removed mm 01:51 PM Wire removed mm 01:51 PM HR=90 bpm, NIBP=99/52 mmhg, SpO2=95.0 %, Resp=15 B/min, Comment=SR w/ PVCs 01:52 PM Procedure completed at 13:52 oumm 01:52 PM Sign out completed: Radiation Dose 115.61 mGy Fluoro Time: 1.4 Isovue 370 - 200ml contrast 20 ml given by Margot Nieves MD. Complications: NoneCardiac Rehab Consult needed: NoConfirmed administered medications: Yes mm 01:53 PM Isovue 370 - 200ml,1 Bottle(s) used. mm 01:54 PM Arterial sheath pulled using manual compression and for 15 minutes by Rose Mary Morales RT (R) mmers 01:54 PM Post ECG NSR oumm 01:54 PM Post Blood Pressure 99/52 [email or web address] 01:54 PM Information taught Cardiac Cath oumm 01:55 PM Education needs Procedure, Plan of Care, Disease Process, and Responsibilities of Patient in Care oumm 01:55 PM Learning barriers :None mm:55 PM Education Methods Verbal oumm 01:55 PM Education evaluation Able to repeat information mm 01:55 PM Site status No bleeding/hematoma - Rt Groin as reported by Sites, Rose Mary RT (R) at 13:55 [email or web address] 01:55 PM Opsite applied oumm 01:55 PM Plavix, Effient or Brilinta given No oummers 01:56 PM Delay to floor No [email or web address] 01:56 PM HR=79 bpm, NIBP=98/76 mmhg, SpO2=93.0 %, Resp=36 B/min, Comment=SR w/ PVCs 01:57 PM Time: 13:42 Patient comfortable and pain free: Yes oumm:57 PM Time: 13:42LOC: 5 = Fully awake and oriented or at pre-proc level [email or web address] 01:58 PM Family placed in consult room. [email or web address] 02:00 PM Complications: None [email or web address] 02:00 PM Fluoro Time: 1.4 [email or web address] 02:00 PM Isovue 370 - 200ml contrast 20 ml given by Margot Nieves MD. tsoummers 02:00 PM Radiation Dose 115.61 mGy tsoummers 02:00 PM HR=82 bpm, FKJQ=536/82 mmhg, SpO2=96.0 %, Resp=13 B/min, Comment=SR w/ PVCs 02:01 PM Coronary Dominance: Left [email or web address] 02:03 PM Report given to Madalyn GALVAN Pt taken to Room #53. 14:03 [email or web address] 02:06 PM 14:05 Post Pulses Bilateral DP & PT 1+ [email or web address] 02:07 PM ASA Class CLASS II- Mild systemic disease (i.e. well-controlled diabetes, hypertension, asthma, cigarette smoking) [email or web address] 02:14 PM Patient out of room: 14:14 [email or web address] Complications Complication None Hemodynamics Pressures Site Systolic/A Wave Diastolic/V Wave Mean AO 116 61 83 AO 111 64 85 Post Procedure Information Blood Pressure: 99/52 mmHg Rhythm: NSR Post procedural instructions were given Site Checks Time Location Status Staff Sheath In? Note 01:55 PM Rt Groin No bleeding/hematoma Sites, Rose Mary RT (R) Pulses Time Site Pre-Procedure Post-Procedure Note 03/08/2017 1:04:00 PM Bilateral DP & PT 1+ 2:05:00 PM Bilateral DP & PT 1+ Updated by Ila Genao RN on 03/08/2017 2:15:02 PM electronically signed on 03/08/2017 2:15:50 PM with status of Final
[2017-03-08] MEDS: Metoprolol XL (24 HR) Succ 25 MG TAB.ER.24H PO SCH (14:57)
--- NOTE | 2017-03-08 16:20 | Internal Med Progress Note ---
Date of Encounter: 03/08/17 Time of Encounter: 09:50 - Assessment and plan (1) Congestive heart failure (CHF) Current Visit: Yes Status: Acute Assessment and plan: Pt presents to the ED with c/o approximately 1 week history of SOB, PAUL, these were new symptoms for her. She reports increased BLE, L>R. She reports feeling chest congestion, but denies fever, chills, or rigors. She denies chest pain or pressure, n/v, diaphoresis. Pt has a 3/6 murmur LSB and irregular apical pulse. BNP is elevated 3194 and pt has one elevated troponin, 0.4 in the setting of CHF and ischemic demand. Chest xray shows cardiomegaly with pulmonary edema. Pt has no prior cardiac history, cardiology has been consulted Echo showed an LVEF of 35% with global hypokinesis and a severely dilated left ventricle. There is mild concentric LV hypertrophy, severe LV systolic dysfunction, severely dilated left atrium, trileaflet aortic valve, trace AR, moderate to severe MR, mildly calcified mitral valve leaflets, moderate TR, mild to moderate NE, severe pulmonary hypertension. Continue telemetry Continue Lasix, ASA, and pt was started on low dose ACEI by typer. Patient will have RHC/LHC tomorrow. Chest X-Ray 03/05/17 21:37 IMPRESSION: 1. Cardiomegaly with pulmonary edema. D/ / Kashmir Connelly MD / Kashmir Connelly MD Interpreting Provider: Kashmir Connelly MD Echocardiogram 03/06/17 02:01 Impressions: Technically adequate exam. Normal sinus rhythm. Severely dilated left ventricle. Mild concentric left ventricular hypertrophy. Severe left ventricular systolic dysfunction. Severely dilated left atrium. Trileaflet aortic valve. Trace aortic regurgitation. Moderate-severe mitral regurgitation. Mildly calcified mitral valve leaflets. Mild tricuspid regurgitation. Mild pulmonic regurgitation. LVEF 35%, global hypokinesis Left Ventricular Wall Motion: Rest Echo Findings The apex, apical inferior, mid inferior, basal inferior, apical anterior, mid anterior, basal anterior, apical septal, mid inferior septal, basal inferior septal, apical lateral, mid anterior lateral, basal anterior lateral, mid anterior septal and mid inferior lateral stevenson were hypokinetic. ADDENDUM: 03/07/17 1158 Impressions: Normal sinus rhythm. Technically adequate exam. LVEF 35%, global hypokinesis Severely dilated left ventricle. Mild concentric left ventricular hypertrophy. Severe left ventricular systolic dysfunction. Severely dilated left atrium. Trileaflet aortic valve. Trace aortic regurgitation. Moderate-severe mitral regurgitation. Mildly calcified mitral valve leaflets. Moderate tricuspid regurgitation. Mild-moderate pulmonic regurgitation. Severe pulmonary hypertension. Estimated RVSP is 88 mmHg. Left Ventricular Wall Motion: Rest Echo Findings The apex, apical inferior, mid inferior, basal inferior, apical anterior, mid anterior, basal anterior, apical septal, mid inferior septal, basal inferior septal, apical lateral, mid anterior lateral, basal anterior lateral, mid anterior septal and mid inferior lateral stevenson were hypokinetic. Qualifiers: Congestive heart failure type: combined Congestive heart failure chronicity : acute Qualified Code(s): I50.41 - Acute combined systolic (congestive) and diastolic (congestive) heart failure (2) Dyspnea on exertion Current Visit: Yes Status: Acute Assessment and plan: Pt appears to be in no distress, faint rales heard in dilshad bases on admission, lungs are clear now. She is requiring supplemental 02 today. Chest xray shows cardiomegaly and pulmonary edema. Will continue to diurese overnight. Plan as above. (3) Chest pain Current Visit: No Status: Inactive Assessment and plan: Pt denies ever having chest pain or pressure. Qualifiers: Chest pain type: unspecified Qualified Code(s): R07.9 - Chest pain, unspecified (4) DVT prophylaxis Current Visit: Yes Status: Acute Assessment and plan: Heparin SQ daily, pt is ambulatory in her room. (5) Mitral regurgitation Current Visit: Yes Status: Acute Assessment and plan: Per echo, moderate to severe MR with increased LV dilatation, decreased LV systolic function. Spoke briefly with cardiology [employer], he states that patient may have JEANE tomorrow for evaluation of valve after continued diuresis today. Follow cardiology recommendations. Qualifiers: Cardiac valve disease etiology: nonrheumatic Qualified Code(s): I34.0 - Nonrheumatic mitral (valve) insufficiency (6) Pulmonary hypertension Current Visit: Yes Status: Chronic Assessment and plan: RHC/LHC tomorrow for evaluation. Patient had nocturnal pulse ox to evaluate nocturnal hypoxemia. Results per cardiopulmonary. (7) Tricuspid regurgitation Current Visit: Yes Status: Chronic Assessment and plan: Per echo, [facility] to evaluate. Qualifiers: Cardiac valve disease etiology: nonrheumatic Qualified Code(s): I36.1 - Nonrheumatic tricuspid (valve) insufficiency - Time Spent With Patient less than 15 minutes - Subjective Interval history: Patient is an exceptionally pleasant, alert, oriented 61-year-old female with congenital bilateral upper extremity deformities. Pt was seen and assessd at 0950 today. All questions from pt, father, and family friend. here and is ready to go home. Pt denies chest pain or SOB. - Constitutional Vitals: Temp Pulse Resp BP Pulse Ox 97.7 F 64 14 130/61 94 03/08/17 11:04 03/08/17 14:50 03/08/17 14:50 03/08/17 14:50 03/08/17 14:50 General appearance: Present: cooperative, A&O X 3, pleasant, no acute distress, answers questions appropriately - Head Head exam: Present: atraumatic, normal inspection, normocephalic - Eye Eye exam: Present: normal appearance, conjuntiva pink, sclera anicteric - Neck Neck exam general surgery: Present: supple, trachea midline. Absent: lymphadenopathy - Respiratory Respiratory exam: Present: CTAB. Absent: accessory muscle use, chest wall tenderness, decreased breath sounds, rales, rhonchi, wheezes - Cardiovascular Cardiovascular exam: Present: RRR, +S1, +S2, systolic murmur. Absent: gallop, rubs - GI/Abdominal GI/Abdominal exam: Present: normal bowel sounds, soft, no peritoneal signs. Absent: distended, hepatomegaly, tenderness - Extremities Exam Extremities exam: Present: normal capillary refill, warm, radial pulses palpable and symmetrical. Absent: calf tenderness, cyanotic, pedal edema - Neurological Exam Neurological exam: Present: alert, oriented X3, no focal deficits. Absent: facial droop, speech deficit - Skin Skin exam: Present: dry, intact, normal color, warm. Absent: rash Internal Medicine: Result - Labs CBC & Chem 7: 03/08/17 08:29 03/08/17 08:29 Labs: Short CBC 03/08/17 Range/Units 08:29 WBC 4.9 (4.3-11.1) K/mcL Hgb 14.5 (11.5-15.4) g/dL Hct 43.7 (35.3-44.9) % Plt Count 166 (140-400) K/mcL Neutrophils # 3.2 (1.6-8.9) K/mcL BMP 03/08/17 08:29 Sodium 142 Potassium 3.8 Chloride 105 Carbon Dioxide 29 BUN 18 Creatinine 0.78 Glucose 97 Calcium 8.9 Liver Function 03/08/17 Range/Units 08:29 AST 19 (5-34) Units/L ALT 32 (0-55) Units/L - ABG Interpretation ABG results: PT/INR, D-dimer PT 13.2 Seconds (9.4-12.1) H 03/08/17 08:27 Consult Discharge Plan - Plan Referrals: Cele Pan MD [Family Provider] - 03/15/17 11:00 am NONE,PCP [Primary Care Provider] -
[2017-03-08 19:49] LABS: CK-BB (CK isoenzymes) 0 % (0-0); CK-MB (CK isoenzymes) 0 % (0-4); CK-MM (CK-isoenzymes) 78 % (96-100)
[2017-03-09] MEDS: *HR* Heparin 5,000 UNIT/ML VIAL SQ SCH (05:56)
[2017-03-09 07:18] LABS: CK Total (Ck Isoenzymes) 85 U/L (20-180)
[2017-03-09] MEDS ORDERED: 0.9 % Sodium Chloride 500 ML IVC ONE (08:37)
[2017-03-09] MEDS ORDERED: *HR* Midazolam HCl 5 MG/5 ML VIAL IVP PRN (08:37)
[2017-03-09] MEDS ORDERED: Tetracaine/Benzocaine/Butamben 200MG/SPRAY (100SPY/BOT) MM ONE (08:37)
[2017-03-09] MEDS ORDERED: Lidocaine Viscous Oral Soln 15 ML SOLUTION MM PRN (08:37)
[2017-03-09] MEDS ORDERED: *HR* FentaNYL (PF) 100 MCG/2 ML VIAL IVP PRN (08:37)
[2017-03-09] MEDS ORDERED: Cholecalciferol (D-3) 1,000 UNIT TABLET PO SCH (09:00)
[2017-03-09] MEDS ORDERED: Multivit/Ca/Min/Fe/FA 1 TAB TABLET PO SCH (09:00)
--- NOTE | 2017-03-09 09:45 | Event Note ---
Date of Encounter: 03/09/17 Time of Encounter: 08:00 - Cardiology Event Note PLan for JEANE today to further evaluate mitral regurgitation. Risks versus benefits of transesophageal echocardiogram explained to patient. Patient states understanding and agreeable to proceed. Further recommendations pending JEANE.
[2017-03-09] MEDS: Furosemide 20 MG/2 ML VIAL IVP SCH (10:50)
[2017-03-09] MEDS: Aspirin 81 MG TAB.CHEW PO SCH (10:50)
[2017-03-09] MEDS: Famotidine 20 MG TABLET PO SCH (10:52)
[2017-03-09] MEDS: Metoprolol XL (24 HR) Succ 25 MG TAB.ER.24H PO SCH (10:52)
[2017-03-09 11:35] VITALS: BP 136/68
--- NOTE | 2017-03-09 11:47 | Event Note ---
Date of Encounter: 03/09/17 Time of Encounter: 11:46 - Cardiology Event Note JEANE with mild-moderate MR. Non-ischemic cardiomyopathy. On asa, beta john, and jaime inhibitor. On lasix. Cardiology will sign off and will follow in outpatient setting. Follow up set.
--- NOTE | 2017-03-09 13:28 | Discharge Summary ---
Date of Encounter: 03/09/17 Time of Encounter: 13:25 - Discharge Diagnosis (1) Congestive heart failure (CHF) Priority: Primary Status: Acute Comments: Aniya Coronado is a 61-year-old female with no significant past medical history who presented to [facility] on 03/05/2017 with complaints of shortness of breath. She was found to have new onset CHF and was admitted for further workup and treatment. She was discharged home on 2016 in stable condition with outpatient follow-up. 1. Acute systolic heart failure: New diagnosis. Presented with progressive shortness of breath. TTE with EF 35%, global hypokinesis and severely dilated left ventricle. RHC/LHC without non-effective CAD. Evaluated by cardiology who suspected nonischemic cardiomyopathy. She was diuresed with IV Lasix with improvement in symptoms. Continue ASA, BB, before meals, Lasix at discharge. Will need a follow-up with cardiology outpatient. 2. Mitral regurgitation: Per history. 03/09/17 JEANE with mild to moderate mitral regurgitation. No need for MVR, mitral clip at this time. Outpatient follow-up with cardiology. 3. Severe pulmonary hypertension: JEANE with severe pulmonary hypertension. S/p right and left heart cath however unable to view final report. Plan for outpatient cardiology follow-up. 4. APOLONIA: Patient did qualify for BiPAP with overnight oxygen saturation monitoring however she declined to have ABGs drawn which is needed to complete qualification. Patient will follow-up with her PCP. Qualifiers: Congestive heart failure type: systolic Congestive heart failure chronicity : acute Qualified Code(s): I50.21 - Acute systolic (congestive) heart failure (2) Mitral regurgitation Priority: Primary Status: Acute Qualifiers: Cardiac valve disease etiology: nonrheumatic Qualified Code(s): I34.0 - Nonrheumatic mitral (valve) insufficiency (3) Pulmonary hypertension Priority: Primary Status: Acute - Discharge Medications Prescriptions: Aspirin 81 mg PO DAILY #30 tab.chew Furosemide [Lasix] 40 mg PO DAILY #30 tablet Lisinopril [Zestril] 2.5 mg PO DAILY #30 tablet Metoprolol XL (24 HR) Succ [Toprol Xl] 12.5 mg PO DAILY #30 tab.er.24h Home Medications: Cholecalciferol (Vitamin D3) [Vitamin D3] 2,000 unit PO DAILY 03/05/17 [History] Vit C/E/Zn/Coppr/Lutein/Zeaxan [Preservision Areds 2 Softgel] 1 cap PO DAILY 02/09 [History] Aspirin 81 mg PO DAILY #30 tab.chew 03/09/17 [Rx] Furosemide [Lasix] 40 mg PO DAILY #30 tablet 03/09/17 [Rx] Lisinopril [Zestril] 2.5 mg PO DAILY #30 tablet 03/09/17 [Rx] Metoprolol XL (24 HR) Succ [Toprol Xl] 12.5 mg PO DAILY #30 tab.er.24h 03/09/17 [Rx] Allergies/Adverse Reactions: 3 Allergy/AdvReac Type Severity Reaction Status Date / Time No Known Allergies Allergy Verified 03/05/17 19:42 Procedures/tests Complete & Pending: Procedures Performed prior 72 hours Category Date Time Status CL Cardiac Catheterization [CL] Routine Chief Wellness Officer 03/08/17 11:56 Ordered EV JEANE transesophageal echo Routine Y 03/09/17 08:00 Completed Date of admission: 03/06/17 02:01 Primary care physician: PCP NONE Consults: 03/06/17 12:46 Consult to Cardiology [CONS] Routine Comment: Consulting Provider: Cardiology Diana Reason for Consult: EF 35%, abnormal echo SOB, peripheral edema Time Notified: 12:46 Call Completed: Yes 03/07/17 12:13 Consult to Respiratory Therapy [CONS] Routine Reason for Consult: nocturnal pulse oximetry Time Notified: 12:17 Call Completed: No 03/08/17 07:42 Consult to Invasive Line Access Team [CONS] Routine Reason for Consult: limited access. multiple attempts even with US. Pt has BUE deformities. Line Type: EPIV Discharging clinician: Christy Downing Anticipated date of discharge: 03/09/17 - Patient Status Disposition: Home, Self-Care Condition: Good Functional capacity at discharge: independent ambulation Overall status at discharge: patient is progressing back to baseline - Discharge Instructions Instructions: Heart Failure (DC), Furosemide (By mouth), Aspirin (By mouth), Lisinopril (By mouth), Carvedilol (By mouth), Mitral Regurgitation (DC) Follow Up With: Tere Purdy DO [Resident] - 04/01/17 9:00 am - Diet and Activity Activity: increase activity as tolerated Diet: low fat, low cholesterol, low salt diet Interval History: Patient is new to me. Information obtained from chart review and patient report. Patient says she feels much better today weblike to discharge home. No shortness of breath, says leg swelling is significantly improved. Discussed with her at length new diagnosis of CHF, cardiomyopathy occluding new medications, need for daily weights and salt restriction. Patient verbalizes understanding. She has no complaints all my exam. Specifically denies chest pain, no shortness of breath. Hospital course: See assessment and plan for hospital course - Time Spent with Patient Total time spent providing and/or coordinating discharge services: Greater than 30 minutes (38 minutes spent on discharge) - Constitutional Vitals: Temp Pulse Resp BP Pulse Ox 97.7 F 74 17 136/68 95 03/09/17 08:58 03/09/17 11:34 03/09/17 11:34 03/09/17 11:34 03/09/17 11:34 General appearance: Present: cooperative, A&O X 3, pleasant, no acute distress, answers questions appropriately - Head Head exam: Present: atraumatic, normocephalic - Eye Eye exam: Present: PERRL, conjuntiva pink, sclera anicteric Pupils: Present: PERRL - Neck Neck exam general surgery: Present: supple, trachea midline. Absent: lymphadenopathy - Respiratory Respiratory exam: Present: CTAB. Absent: accessory muscle use, rales, rhonchi, wheezes - Cardiovascular Cardiovascular exam: Present: RRR, +S1, +S2. Absent: diastolic murmur, gallop, rubs, systolic murmur - GI/Abdominal GI/Abdominal exam: Present: normal bowel sounds, soft, no peritoneal signs. Absent: distended, tenderness - Extremities Exam Extremities exam: Present: warm, radial pulses palpable and symmetrical. Absent : calf tenderness, cyanotic, pedal edema - Expanded Upper Extremities Exam Upper Arm exam: Present: deformity Elbow exam: Present: deformity Forearm wrist exam: Present: deformity Hand wrist exam: Present: deformity - Neurological Exam Neurological exam: Present: CN II-XII intact, oriented X3, no focal deficits. Absent: pronater drift, facial droop, speech deficit - Skin Skin exam: Present: dry, intact
[2017-03-11 01:40] LABS: CK-BB (CK isoenzymes) 0 % (0-0); CK-MB (CK isoenzymes) 0 % (0-4); CK-MM (CK-isoenzymes) 78 % (96-100)
[2017-03-11 08:13] LABS: CK Total (Ck Isoenzymes) 76 U/L (20-180)
--- NOTE | 2017-03-16 14:26 | Invasive Diagnostic Lab Proc ---
Name: Aniya Lopez Date of Study: 03/08/2017 Date: 1955 Ht: 57.1in Medical Record#: [id number] Age: 61 Wt: 147.27lb Gender: Female BSA: 1.58 Order #: [id number] BMI: 31.77 Physicians Procedure Physician: Margot Nieves MD Referring MD: Referring MD: Staff Name Position Time In [facility] RT (R) Scrub 01:14 PM Lizzette Payan RN Cloth Roll Winder 01:14 PM Ila Genao RN Cloth Roll Winder 01:14 PM Indications Indication Unstable Angina Procedures Performed Procedure CORONARY ARTERY ANGIO S&I MOD SED OTH PHYS/QHP 5/>YRS Pre-Procedure Checklist Informed consent is complete signed and on chart. H&P is on chart. ID band is on and ID verified with patient. Patient NPO for procedure The procedure was described for the patient and questions were answered. Blood Pressure: 111/73 ECG is on chart. Rhythm: NSR Plan of Care Patient will tolerate the procedure without complications. Adequate level of comfort will be maintained. Hemodynamics will remain stable Patient will recover from procedure without complications. Respiratory function will be maintained. Cardiac rhythm will remain stable. Patient temperature will be maintained. Patient and/or family have verbalized understanding of the procedure. Patient Education Chief Complaint/Reason for Test: Cardiac Cath Developmental Category: Adult (18-64 years) Developmentally Appropriate for Age: Yes Learning Barriers: None Education Needs: Procedure Education Method: Verbal Information Taught: Cardiac Cath Educational Evaluation: Able to repeat information Intravenous Access Time IV Size Location DC'd Fluid/Drip Rate Units RN 01:04 PM Allergies No Known Allergies Vital Signs Time BP (mmHg) HR (bpm) O2 Sat. RR (bpm) LOC 01:27 PM / % 5 = Fully awake and oriented or at pre-proc level 01:27 PM / % 5 = Fully awake and oriented or at pre-proc level 01:42 PM / % 5 = Fully awake and oriented or at pre-proc level 01:35 PM 126 / 86 89 98 % 12 01:41 PM 129 / 61 74 95 % 21 01:45 PM 114 / 51 77 96 % 19 01:51 PM 99 / 52 90 95 % 15 01:56 PM 98 / 76 79 93 % 36 02:00 PM 108 / 82 82 96 % 13 01:30 PM 142 / 72 84 95 % 20 Procedural Medications Time Medication Dose Units Method Given By 01:27 PM Oxygen 2 L/min nasal cannula Lizzette Payan RN 01:34 PM Versed 0.5 mg Intravenous Lizzette Payan RN 01:34 PM Fentanyl 25 mcg Intravenous Lizzette Payan RN 01:42 PM Lidocaine 2% 10 ml Subcutaneous Margot Nieves MD 01:43 PM Versed 0.5 mg Intravenous Lizzette Payan RN 01:43 PM Fentanyl 25 mcg Intravenous Lizzette Payan RN ASA Classification: CLASS II- Mild systemic disease (i.e. well-controlled diabetes, hypertension, asthma, cigarette smoking) Roula Score Preprocedure Postprocedure Activity 2- Moves 4 extremities sustained head lift Activity 2- Moves 4 extremities sustained head lift Circulation 2- SBP +/= 20 points of pre-anesthetic level Circulation 2- SBP +/= 20 points of pre-anesthetic level Consciousness 2- Awake and alert oriented x 3 Consciousness 2- Awake and alert oriented x 3 O2 Saturation 2- Able to maintain O2 satruation of 92% on room air O2 Saturation 2- Able to maintain O2 satruation of 92% on room air Respiratory 2- Able to deep breathe and cough well Respiratory 2- Able to deep breathe and cough well Total Score 10 Total Score 10 Contrast Agent: Isovue Diagnostic Contrast: 20 ml Total Contrast: 20 ml Fluoro Dose: 116 mGy Procedure Log Time Note Enter By 01:05 PM Case Start 01:05 PM CathStat 01:08 PM Pt arrived to wheelabrator operator 2 at 13:08 [email or web address] 01:14 PM Physican paged/called 13:14. [email or web address] 01:14 PM Rose Mary Morales RT (R) Position: Scrub Time in: 13:14 [email or web address] 01:14 PM Lizzette Payan RN Position: Cloth Roll Winder Time in: 13:14 [email or web address] 01:14 PM Ila Genao RN Position: Cloth Roll Winder Time in: 13:14 [email or web address] 01:14 PM Case Delayed No [email or web address] 01:25 PM Hair removed from procedure site in procedure lab using clippers. Right groin prepped with Chloraprep by Rose Mary Morales RT (R), safety strap applied then patient was draped. Skin intact. [email or web address] : PM Physican paged/called 13:25. [email or web address] : PM Physican responded and notified patient is ready 13:ethel3 : PM Physician arrived 13:ethel3 : PM Meet and greet completed [email or web address] : PM Sign in performed according to hospital policy. [email or web address] : PM Procedure start 13:ethel3 : PM Time: 13: Oxygen on at 2 L/min per nasal cannula by Lizzette Payan RN anamaria : PM Time: 13: Patient comfortable and pain free: Yes [email or web address] PM Time: 13:LOC: 5 = Fully awake and oriented or at pre-proc [facility] PM Clinical Presentation: Unstable angina [facility] 01:30 PM Vitals capture started with the following parameters, Patient=Adult, Interval=5 min, Initial Ojazrgws=777 mmHg, Deflation Rate=5 mmHg, Cuff placed on Right Arm 01:30 PM HR=84 bpm, EQQQ=580/72 mmhg, SpO2=95.0 %, Resp=20 B/min, Comment=SR w/ PVCs 01:31 PM Recorded ECG: HR=88 Condition=Condition 1 01:34 PM Time: 13:34 Versed 0.5 mg Intravenous Given by Lizzette Payan RN anamaria :34 PM Time: 13:34 Fentanyl 25 mcg Intravenous Given by Lizzette Payan RN 01:35 PM HR=89 bpm, VHWB=628/86 mmhg, SpO2=98.0 %, Resp=12 B/min, Comment=SR w/ PVCs 01:39 PM Pressure channel 1 zeroed. 01:40 PM Time out performed according to hospital policy mm: PM HR=74 bpm, UNPP=448/61 mmhg, SpO2=95.0 %, Resp=21 B/min, Comment=SR w/ PVCs : PM Time: 13:27LOC: 5 = Fully awake and oriented or at pre-proc level minal PM Time: 13:27 Patient comfortable and pain free: Yes anamaria PM Time: 13:42 10 ml Lidocaine 2% to right groin Subcutaneous Given by Margot Nieves MD 01:42 PM Micro-Introducer Kit utilized for sheath placement 01:43 PM Time: 13:43 Versed 0.5 mg Intravenous Given by Lizzette Payan RN :43 PM Time: 13:43 Fentanyl 25 mcg Intravenous Given by Lizzette Payan RN 01:45 PM Access obtained by percutaneous puncture. 6Fr 10cm Terumo [place] sheath placed in right Femoral artery. [id number] 01:45 PM HR=77 bpm, BADU=585/51 mmhg, SpO2=96.0 %, Resp=19 B/min, Comment=SR w/ PVCs 01:46 PM 0.035 145cm Navilyst 3mmJ wire [id number] 01:46 PM 5Fr FR 4 catheter inserted over the wire [facility] mm 01:46 PM Recorded Pressure: Ao, HR=79, Condition=Condition 1 (Aorta) Ao 111/64/85 01:48 PM RCA angiography performed in multiple views. mm 01:48 PM Catheter removed 01:48 PM 5Fr FL 4 catheter inserted over the wire [facility] 01:48 PM LCA angiography performed in multiple views. mm 01:49 PM Recorded Pressure: Ao, HR=78, Condition=Condition 1 (Aorta) Ao 116/61/83 01:50 PM Catheter removed oumm 01:51 PM Wire removed mm 01:51 PM HR=90 bpm, NIBP=99/52 mmhg, SpO2=95.0 %, Resp=15 B/min, Comment=SR w/ PVCs 01:52 PM Procedure completed at 13:52 mm 01:52 PM Sign out completed: Radiation Dose 115.61 mGy Fluoro Time: 1.4 Isovue 370 - 200ml contrast 20 ml given by Margot Nieves MD. Complications: NoneCardiac Rehab Consult needed: NoConfirmed administered medications: Yes oummers 01:53 PM Isovue 370 - 200ml,1 Bottle(s) used. [facility] 01:54 PM Arterial sheath pulled using manual compression and for 15 minutes by Sites, Rose Mary RT (R) tsoummers 01:54 PM Post ECG NSR tsoummers 01:54 PM Post Blood Pressure 99/52 tsoummers 01:54 PM Information taught Cardiac Cath tsoummers 01:55 PM Education needs Procedure, Plan of Care, Disease Process, and Responsibilities of Patient in Care tsoummers 01:55 PM Learning barriers :None tsoummers 01:55 PM Education Methods Verbal oummers :55 PM Education evaluation Able to repeat information oummers :55 PM Site status No bleeding/hematoma - Rt Groin as reported by Sites, Rose Mary RT (R) at 13:55 tsoummers 01:55 PM Opsite applied tsoummers 01:55 PM Plavix, Effient or Brilinta given No tsoummers 01:56 PM Delay to floor No tsoummers 01:56 PM HR=79 bpm, NIBP=98/76 mmhg, SpO2=93.0 %, Resp=36 B/min, Comment=SR w/ PVCs 01:57 PM Time: 13:42 Patient comfortable and pain free: Yes oummers 01:57 PM Time: 13:42LOC: 5 = Fully awake and oriented or at pre-proc level tsoummers 01:58 PM Family placed in consult room. [email or web address] 02:00 PM Complications: None tsoummers 02:00 PM Fluoro Time: 1.4 tsoummers 02:00 PM Isovue 370 - 200ml contrast 20 ml given by Margot Nieves MD. tsoummers 02:00 PM Radiation Dose 115.61 mGy tsoummers 02:00 PM HR=82 bpm, KISK=116/82 mmhg, SpO2=96.0 %, Resp=13 B/min, Comment=SR w/ PVCs 02:01 PM Coronary Dominance: Left tsoummers 02:03 PM Report given to Madalyn GALVAN Pt taken to Room #53. 14:03 tsoummers 02:06 PM 14:05 Post Pulses Bilateral DP & PT 1+ tsoummers 02:07 PM ASA Class CLASS II- Mild systemic disease (i.e. well-controlled diabetes, hypertension, asthma, cigarette smoking) tsoummers 02:14 PM Patient out of room: 14:14 tsmmers Equipment Used Size Length Diameter Item Category Micro-Introducer Kit Other Terumo [place] sheath Navilyst 3mmJ wire Isovue 370- 200ml Contrast Complications Complication None Hemodynamics Pressures Site Systolic/A Wave Diastolic/V Wave Mean AO 116 61 83 AO 111 64 85 Post Procedure Information Blood Pressure: 99/52 mmHg Rhythm: NSR Post procedural instructions were given Closure Device Time Device Success/Fail 03/16/2017 1:54:00 PM Manual Compression Successful Site Checks Time Location Status Staff Sheath In? Note 01:55 PM Rt Groin No bleeding/hematoma Sites, Rose Mary RT (R) Pulses Time Site Pre-Procedure Post-Procedure Note 03/08/2017 1:04:00 PM Bilateral DP & PT 1+ 2:05:00 PM Bilateral DP & PT 1+ Updated by Ila Genao RN on 03/16/2017 2:19:10 PM electronically signed on 03/16/2017 2:19:45 PM with status of Final
== END 2017-03-09 16:44 | disposition home or self-care (01) | DRG 287 ==
LOC: EMEROO 21:22 → 3BNU 21:22
PROVIDERS: ADMIT Hospitalist; ATTEND Registered Nurse